=== PATIENT | male | born 1960 | race African-American/Black ===

== ENCOUNTER 2018-10-07 06:41 | Emergency (ER) | payer OTHER ==
[2018-10-07 07:05] VITALS: BP 192/98; PULSE 62; TEMP 97.4; BMI 27.2
--- NOTE | 2018-10-07 09:16 | PDOC ---
History of Present Illness - General Chief Complaint: Injury Stated Complaint: PAIN,RT KNEE/ANKLE Time Seen by Provider: 10/07/18 08:34 History Source: Patient Exam Limitations: No Limitations - History of Present Illness Initial Comments: 10/07/18 09:16 58 year old man with a history of HTN presents with R ankle and R knee pain after a fall while walking down the steps and slipping on ice landing on his back but with and bent R knee. The patient denies head trauma or loss of consciousness and was able to ambulate after the fall w/ the assistance of a coworker. The patient denies use of anti-coagulants. Denies back pain, abdominal pain, chest pain, shortness of breath. No other complaints at bedside. Past History - Past Medical History Allergies/Adverse Reactions: Allergies Allergy/AdvReac Type Severity Reaction Status Date / Time No Known Allergies Allergy Verified 10/07/18 07:03 Home Medications: Ambulatory Orders NK [No Known Home Medication] 10/07/18 COPD: No Dementia: No Lung CA: No - Surgical History Lung Surgery: No - Immunization History Immunization Up to Date: No - Suicide/Smoking/Psychosocial Hx Smoking History: Never smoked Have you smoked in the past 12 months: No Information on smoking cessation initiated: No Hx Alcohol Use: No Drug/Substance Use Hx: No *Physical Exam - Vital Signs Last Vital Signs Temp Pulse Resp BP Pulse Ox 97.4 F L 62 18 192/98 H 97 10/07/18 07:03 10/07/18 07:03 10/07/18 07:03 10/07/18 07:03 10/07/18 07:03 - Physical Exam Comments: 10/07/18 09:24 GENERAL: Awake, alert, and fully oriented, in no acute distress HEAD: No signs of trauma, normocephalic, atraumatic EYES: EOMI, sclera anicteric, conjunctiva clear ENT: oropharynx clear without exudates. Moist mucosa NECK: Normal ROM, supple, no c spine tenderness LUNGS: No distress, speaks full sentences, clear to auscultation bilaterally HEART: Regular rate and rhythm, normal S1 and S2, no murmurs, rubs or gallops, peripheral pulses normal and equal bilaterally. ABDOMEN: Soft, nontender, normoactive bowel sounds. No guarding, no rebound. No masses EXTREMITIES : Normal inspection, Normal ROM, swelling of R ankle, point tenderness to R mid medial malleolus. No clubbing or cyanosis. NEUROLOGICAL: Cranial nerves II through XII grossly intact. Normal speech, no focal sensorimotor deficits SKIN: Warm, Dry, normal turgor, no rashes or lesions noted Moderate Sedation - Procedure Monitoring Vital Signs: Procedure Monitoring Vital Signs Temperature 97.4 F L 10/07/18 07:03 Pulse Rate 62 10/07/18 07:03 Respiratory Rate 18 10/07/18 07:03 Blood Pressure 192/98 H 10/07/18 07:03 O2 Sat by Pulse Oximetry (%) 97 10/07/18 07:03 ED Treatment Course - RADIOLOGY Radiology Studies Ordered: Category Date Time Status ANKLE-RIGHT [RAD] Stat Radiology 10/07/18 09:13 Ordered KNEE 3 POS-RIGHT [RAD] Stat Radiology 10/07/18 09:13 Ordered Medical Decision Making - Medical Decision Making 10/07/18 09:23 58 year old man with a history of HTN presents with R ankle and R knee pain after a fall while walking down the steps and slipping on ice landing on his back but with and bent R knee. The patient denies head trauma or loss of consciousness and was able to ambulate after the fall w/ the assistance of a coworker. ED Course: fracture vs dislocation vs sprain XR of R ankle and R knee 10/07/18 10:51 XR without acute fracture or dislocation as read by this engineering technical writer and attending. The patient was reassessed, feels better and showed clinical improvement. Patient stable for discharge *DC/Admit/Observation/Transfer Diagnosis at time of Disposition: Ankle sprain Qualifiers: Encounter type: initial encounter Involved ligament of ankle: unspecified ligament Laterality: right Qualified Code(s): S93.401A - Sprain of unspecified ligament of right ankle, initial encounter Knee sprain Qualifiers: Encounter type: initial encounter Involved ligament of knee: unspecified ligament Laterality: right Qualified Code(s): S83.91XA - Sprain of unspecified site of right knee, initial encounter - Discharge Dispostion Disposition: HOME Condition at time of disposition: Stable Decision to Admit order: No - Referrals Referrals: Bob Ashby MD [Staff Physician] - - Patient Instructions Additional Instructions: You were seen in the ED for complaints of R knee and ankle pain after a fall. In the ED you were evaluated with imaging. Your results did not show a fracture or dislocation. There does not appear to be an acute need for immediate hospitalization. You are advised to follow up with your Primary Care Physician within 1 week. You were given a referral to Orthopedics and are advised to follow up within 1 week if symptoms persist or worsen. Ice every 20 minutes for symptoms relief. Take Tylenol and Motrin as needed over the counter for pain relief. Rest the ankle and knee and bear weight as tolerated. Return to the ED immediately if you experience worsening pain in the R ankle and knee, inability to bear weight, numbness and tingling or muscle weakness. - Post Discharge Activity Forms/Work/School Notes: Back to Work
--- NOTE | 2018-10-07 09:20 | PDOC ---
Attending Attestation - HPI HPI: 10/07/18 09:23 The patient is a 58 year old male with a past medical history of HTN here today for evaluation of right knee and ankle pain. The patient reports that he was walking down the stairs today when he slipped on ice and fell on his back with his right leg bent. He reports that his right ankle and knee pain began after this fall and notes that he was able to walk after the fall but had to be assisted by a coworker. Patient denies headache, lightheadedness. Denies fever, chills. Denies chest pain, shortness of breath. Denies nausea, vomiting, diarrhea, abdominal pain. Allergies: NKA PCP: none reported - Medical Decision Making 10/07/18 09:23 Documentation prepared by ASHLEY Garcia, acting as medical records receptionist for Sundeep Moulton MD. The patient is a 58 year old male with a past medical history of HTN here today for evaluation of right knee and ankle pain. <Raj Villalta - Last Filed: 10/07/18 09:23> - Resident Resident Name: Elba Talamantes - ED Attending Attestation I have performed the following: I have examined & evaluated the patient, The case was reviewed & discussed with the resident, I agree w/resident's findings & plan, Exceptions are as noted - Physicial Exam PE: 10/07/18 14:16 Reviewed Residents PE - Medical Decision Making 10/07/18 14:17 No acute fracture dislocation noted on x-rays. History examination consistent with sprain versus bruise We'll recommend conservative management orthopedic follow-up. Findings, need for follow-up and strict return instructions discussed with patient. <Sundeep Moulton - Last Filed: 10/07/18 14:17>
[2018-10-07] MEDS ORDERED: ACETAMINOPHEN 325 MG TABLET (FP) PO ONE (09:21)
[2018-10-07] MEDS ORDERED: IBUPROFEN 600 MG TABLET (FP) PO ONE ×2 (09:22→09:53)
== END 2018-10-07 11:39 | disposition home or self-care (01) ==
LOC: JER 06:41
DX: S93.401A Sprain of unspecified ligament of right ankle, initial encounter (principal); S83.8X1A Sprain of other specified parts of right knee, initial encounter; W00.1XXA Fall from stairs and steps due to ice and snow, initial encounter; Y93.89 Activity, other specified; Y92.238 Other place in hospital as the place of occurrence of the external cause; Y99.0 Civilian activity done for income or pay; I10 Essential (primary) hypertension
CPT/HCPCS: 73562-TC-RT-FY; 73610-TC-RT-FY; 99282-25